=== PATIENT | male | born 2000 | race Caucasian/White ===

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

== ENCOUNTER → 2023-02-19 | Outpatient (CLI) | payer MEDICAID ==
--- NOTE | 2023-02-19 17:02 | CA ---
Transthoracic Echo Report Name: Jaspreet Rosales Age: 22 Gender: M : 2000 Exam Date: 02/19/2023 13:01 Exam Location: [facility] Ht (in): 70 Wt (lb): 180 Ordering Physician: Nitesh Giraldo MD ([id number]) Attending/Referring Phys: Wax Pattern Assembler Karina Ellis RDCS Procedure CPT: Indications: DOPPLER Cardiac Hx: Technical Quality: Excellent Contrast 1: Total Dose (mL): Contrast 2: Total Dose (mL): MEASUREMENTS (Male / Female) Normal Values 2D ECHO LV Diastolic Diameter PLAX 4.8 cm 4.2 - 5.9 / 3.9 - 5.3 cm LV Systolic Diameter PLAX 3.4 cm IVS Diastolic Thickness 1.0 cm 0.6 - 1.0 / 0.6 - 0.9 cm LVPW Diastolic Thickness 0.9 cm 0.6 - 1.0 / 0.6 - 0.9 cm LV Relative Wall Thickness 0.4 RV Internal Dim ED PLAX 3.1 cm LA Systolic Diameter LX 2.9 cm 3.0 - 4.0 / 2.7 - 3.8 cm LV Diastolic Volume MOD 4C 89.5 cm??? LV Systolic Volume MOD 4C 35.6 cm??? LV Ejection Fraction MOD 4C 60.2 % LV Diastolic Length 4C 9.5 cm LV Systolic Length 4C 7.3 cm LV Diastolic Volume MOD 2C 156.7 cm??? LV Systolic Volume MOD 2C 61.7 cm??? LV Ejection Fraction MOD 2C 60.6 % LV Diastolic Length 2C 9.3 cm LV Systolic Length 2C 7.2 cm LA Volume 37.5 cm??? 18 - 58 / 22 - 52 cm??? M-MODE Aortic Root Diameter MM 3.3 cm MV E Point Septal Separation 0.5 cm AV Cusp Separation MM 2.5 cm DOPPLER AV Peak Velocity 150.0 cm/s AV Peak Gradient 9.0 mmHg MV Area PHT 5.2 cm??? Mitral E Point Velocity 102.0 cm/s Mitral A Point Velocity 52.4 cm/s Mitral E to A Ratio 1.9 MV Deceleration Time 146.2 ms MV E' Velocity 12.5 cm/s Mitral E to MV E' Ratio 8.1 TR Peak Velocity 241.1 cm/s TR Peak Gradient 23.3 mmHg Right Ventricular Systolic Press 27.7 mmHg FINDINGS Left Ventricle Left ventricular ejection fraction is estimated at 60-65 %. Left ventricular cavity size normal. Left ventricular wall thickness normal. Right Ventricle Normal right ventricular size and function. Right ventricular systolic pressure within normal limits. Right ventricular systolic pressure estimated at 28 mm hg. Right Atrium Normal right atrial size. Left Atrium Normal left atrial size. Mitral Valve Structurally normal mitral valve. No mitral stenosis, regurgitation or prolapse. Aortic Valve Trileaflet aortic valve. No aortic valve stenosis or regurgitation. Tricuspid Valve Structurally normal tricuspid valve. Mild tricuspid regurgitation. Pulmonic Valve Structurally normal pulmonic valve. Trace pulmonic regurgitation. Pericardium Normal pericardium. No pericardial effusion. Aorta Normal size aortic root and proximal ascending aorta. CONCLUSIONS Normal LV systolic function Previewed by: Dr. Basim Quintana MD (Electronically Signed) Final Date: 19 February 2023 17:01
== END | disposition home or self-care (01) ==
LOC: RADECHMAIN 12:43
PROVIDERS: ATTEND Internal Medicine Clinical Cardiac Electrophysiology
DX: R00.2 Palpitations (principal); I51.7 Cardiomegaly; R94.31 Abnormal electrocardiogram [ECG] [EKG]
CPT/HCPCS: 93270; 93306

== ENCOUNTER → 2023-06-26 | Outpatient (CLI) | payer MEDICAID ==
--- NOTE | 2023-06-26 11:13 | CA ---
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 ICD-10 Codes: Patient History: Medications: Meds past 24 hrs: Pretest Chest Pain: STRESS TEST Tristan Protocol Exercise Duration (min:sec): 14:[address] Depressions (mm): Angina Score: Wasserman Score: Resting HR (bpm): 75 Peak HR (bpm): 194 Resting BP (mmHg): 136 / 79 Peak BP (mmHg): 167 / 46 MPHR: 200 Target HR: 170 % MPHR: 97 METS: 14.9 Total Dose: Peak Dose: Atropine: Double Product: 16998 BP Response: Stress Termination: Reached target heart rate Stress Symptoms: No chest pain or symptoms Stress Summary: ECG ANALYSIS Resting ECG: Stress ECG: CONCLUSIONS Exercise stress test to evaluate the functional properties of the left-sided accessory pathway Baseline heart is 65 beats a minute, Baseline blood pressure 136/79 mmHg Baseline per EKG shows sinus rhythm with a wide QRS. Preexcitation , a short AL interval and secondary T-wave inversions Patient exercised on a Tristan protocol for 14 minutes, achieving a peak heart rate 194 beats a minute. Peak blood pressure 167/[address] segment abnormalities noted No symptoms No arrhythmias The AL remained short and the QRS demonstrated delta waves throughout the stress test Impression Persistence of preexcitation during exercise stress test of 14 minutes on a Tristan protocol with heart rates up to 194 beats a minute consistent with a rapid conduction properties of this antegradely conducting accessory pathway Suggest Consider diagnostic EP study and radiofrequency ablation of the accessory Dr. Jose Pérez MD (Electronically Signed) Final Date: 26 June 2023 11:12
== END | disposition home or self-care (01) ==
LOC: RADNMMAIN 08:24
PROVIDERS: ATTEND Internal Medicine Clinical Cardiac Electrophysiology
DX: I45.6 Pre-excitation syndrome (principal)
CPT/HCPCS: 93017

== ENCOUNTER 2023-08-05 06:02 | Day surgery (SDC) | payer MEDICAID ==
[2023-08-05] MEDS: SODIUM CHLORIDE 0.9% 1,000 ML IV SCH (06:35)
[2023-08-05] MEDS ORDERED: HYDROmorphone 0.5 MG/0.5 ML SYRINGE IVP PRN (07:00)
[2023-08-05] MEDS ORDERED: MIDAZOLAM 2 MG/2 ML VIAL IV PRN (07:00)
[2023-08-05] MEDS ORDERED: fentaNYL (PF) 50 MCG/ML 2 ML AMP ONE (07:08)
[2023-08-05] MEDS ORDERED: MIDAZOLAM 2 MG/2 ML VIAL ONE (07:08)
[2023-08-05] MEDS ORDERED: PROPOFOL 10 MG/ML 20 ML VIAL IV ONE (07:08)
[2023-08-05] MEDS ORDERED: ISOPROTERENOL 250 MCG/1.25 ML SYR IV ONE (07:08)
[2023-08-05] MEDS ORDERED: LIDOCAINE 1% INJ 10MG/ML (20 ML MDV) ONE ×2 (07:25→07:48)
[2023-08-05] MEDS ORDERED: LIDOCAINE 1% INJ 10MG/ML (20 ML MDV) SQ ONE (07:46)
[2023-08-05] MEDS ORDERED: ADENOSINE 3 MG/ML 4 ML VIAL ONE (08:17)
[2023-08-05] MEDS ORDERED: HEPARIN SODIUM (1,000 UNIT/ML) 1,000 UNIT in SODIUM CHLORIDE 0.9% 1,000 ML IRRIGATION ONE (10:30)
[2023-08-05] MEDS ORDERED: ACETAMINOPHEN TAB 325 MG TAB PO PRN (10:45)
[2023-08-05] MEDS ORDERED: ACETAMINOPHEN IV (For NPO) 1,000 MG in EMPTY BAG 1 BAG IVPB ONE (11:00)
--- NOTE | 2023-08-05 11:34 | P.HPCAR ---
History of Present Illness This is Dr. Giraldo dictating an H/P on this patient The patient was interviewed and examined IMPRESSION / ASSESSMENT: Abnormal EKG Palpitations and dizzy spells during exercise Left bundle branch block morphology with upright delta waves in the inferior leads and positive and one in aVL consistent with a right-sided pathway Persistence of antegrade accessory pathway conduction with exercise PLAN: Diagnoses EP study and likely ablation of the accessory pathway HPI Patient continues to complain of palpitations and dizzy spells with exercise He has an abnormal EKG Antegrade accessory pathway conduction persisted with exercise At this time he denies no loss of consciousness no chest pain no undue shortness of breath No fever chills or cough ROS: No fever chills or rigors, no cough, phlegm or expectoration, no nausea, vomiting or diarrhea, no hematuria, dysuria, no musculoskeletal complaints, no strokes or seizures, no skin lesions. EXAMINATION: Ulcer to the 50s afebrile Blood pressure 129/76. His mercury Heart sounds S1 and S2 are normal Breath sounds are clear REVIEW OF LABS, ECG & MEDICAL DATA Patient is on no cardiac medications Physical Exam Vitals: Vital Signs Temp Pulse Pulse Resp BP BP Pulse Ox 08/05/23 11:00 73 14 134/83 98 08/05/23 06:31 97.7 F 56 L 16 129/76 127/75 98 Intake and Output 08/04/23 08/05/23 08/05/23 22:59 06:59 14:59 Intake Total 836 Balance 836 Intake: IV 836 Other: Weight 88.5 kg Past Medical History Past Medical History: Asthma Additional Past Medical History / Comment(s): See Dr. Giraldo's H&P History of Any Multi-Drug Resistant Organisms: None Reported Additional Past Surgical History / Comment(s): Circumcism Past Anesthesia/Blood Transfusion Reactions: No Reported Reaction Smoking Status: Never smoker - Past Family History Father History Unknown: Yes Additional Family Medical History / Comment(s): Pt is adopted. Mother History Unknown: Yes Additional Family Medical History / Comment(s): Pt is adopted. Physical Examination Vital Signs Temp Pulse Pulse Resp BP BP Pulse Ox 08/05/23 11:00 73 14 134/83 98 08/05/23 06:31 97.7 F 56 L 16 129/76 127/75 98 Intake and Output 08/04/23 08/05/23 08/05/23 22:59 06:59 14:59 Intake Total 836 Balance 836 Intake: IV 836 Other: Weight 88.5 kg Results Current Medications Generic Name Dose Route Start Last Admin Trade Name Freq PRN Reason Stop Dose Admin Acetaminophen 650 mg 08/05/23 10:45 Acetaminophen Tab 325 Mg Tab PO Q6HR PRN Mild Pain (Scale 1 to 3) Hydromorphone HCl 0.5 mg 08/05/23 07:00 Hydromorphone 0.5 Mg/0.5 Ml Syringe IVP 08/05/23 23:00 Q5M PRN Phase 1 or 2 - Pain Control Sodium Chloride 1,000 mls @ 20 mls/hr 08/05/23 06:04 08/05/23 06:35 Saline 0.9% IV 09/04/23 06:05 600 mls .Q24H ROSEY Administration Lactated Ringer's 1,000 mls @ 20 mls/hr 08/05/23 06:04 Lactated Ringers IV 09/04/23 06:05 .Q24H ROSEY Midazolam HCl 2 mg 08/05/23 07:00 Midazolam 2 Mg/2 Ml Vial IV 08/05/23 23:00 ONCE PRN Pre-Op Anxiety Sodium Chloride 12 ml 08/05/23 10:45 Sodium Chloride 0.9% Flush 10 Ml Syringe IV Q12HR PRN Line Flush Intake and Output 08/04/23 08/05/23 08/05/23 22:59 06:59 14:59 Intake Total 836 Balance 836 Intake: IV 836 Other: Weight 88.5 kg
--- NOTE | 2023-08-05 11:41 | P.EPPROC ---
- EP Procedure Note Electrophysiology Procedure Note: Diagnosis Right-sided accessory pathway Persistence of accessory pathway conduction with exercise Recurrent dizzy spells and palpitations Final diagnosis Right-sided antegradely conducting only accessory pathway 1 o'clock position in the NAYAN view Successful mapping and ablation of the accessory pathway with differential pacing AV node conduction remained intact during and following ablation Details Patient was brought to the EP lab in a fasting state. Written informed consent was obtained prior to the procedure. Venous sheaths placed in the right and left femoral veins Diagnostic catheters positioned in the high right atrium His bundle area right ventricle and coronary sinus Sinus cycle length 1000 ms, SD interval 84 ms with a short SD interval and delta waves. QRS 180 ms AH interval 80 ms and HV interval very short VA Wenckebach block 360 ms Do response to Parahisian pacing Sinus node recovery times were normal IV adenosine given during atrial pacing. No change in the degree of delta waves No change in the degree of delta waves with atrial pacing Left bundle branch block morphology with upright delta waves in the inferior leads Patient developed atrial fibrillation with adenosine Electrical cardioversion was performed to sinus rhythm Pacing from the distal CS resulted in narrowing of the QRS at a pacing cycle length of 600 ms Widening of the QRS with no prominent delta waves at faster cycle lengths Following that mapping of the His bundle and right-sided accessory pathway was performed during differential pacing The AV node/His bundle area was accurately tagged Mapping of the accessory pathway was performed with right atrial pacing The earliest site of activation in the ventricle was mapped This site corresponded to mechanical bump termination of the accessory pathway This was also tagged RF ablation was applied 40 W of power was used Successful ablation was performed Thereafter Isuprel was used Atrial pacing was performed from multiple sites We waited for almost greater than 30-45 minutes Isuprel was repeatedly used and there was no reoccurrence of accessory pathway SD interval within normal Off Isuprel SD interval is 180 ms, QRS 71 ms without delta waves On Isuprel AV node Wenckebach block was 210 ms from multiple different sites Patient tolerated the procedure well without acute complications. Venous sheaths were closed with Vascade
[2023-08-05] MEDS: LACTATED RINGERS 1,000 ML IV SCH (11:43)
[2023-08-06] MEDS: LACTATED RINGERS 1,000 ML IV SCH (04:33)
[2023-08-06] MEDS: SODIUM CHLORIDE 0.9% 1,000 ML IV SCH (04:34)
[2023-08-06 07:55] VITALS: BP 122/64; PULSE 59; RESP 17; TEMP 97.9
--- NOTE | 2023-08-06 12:35 | P.DS ---
Providers Attending physician: Nitesh Giraldo Primary care physician: Claudio Rosales [facility] Course: Patient is doing well. Groins of healed well Minimal tenderness no swelling On examination heart sounds are normal breath sounds are clear Pulse rate in the 50s Blood pressure 128/72 mmHg Impression Right-sided accessory pathway at 1 o'clock position of the iliotibial tricuspid valve Status post successful ablation His follow-up will EKG today shows sinus mechanism with early repolarization abnormality Suggest Discharge home today After about 6-8 weeks we will perform an exercise treadmill stress test as a follow-up for evaluation of accessory pathway conduction post ablation As well as for assessment of AV node function The ablation site was about 1.1-1.5 cm away from the AV node/His bundle area and there was no acute injury noted Event monitor after 3 months Patient Condition at Discharge: Good Plan - Discharge Summary Discharge Rx Participant: No New Discharge Prescriptions: No Action Montelukast [Singulair] 10 mg PO DAILY PRN PRN Reason: Congestion Levocetirizine Dihydrochloride [Xyzal] 5 mg PO DAILY PRN PRN Reason: Congestion Discharge Medication List Levocetirizine Dihydrochloride [Xyzal] 5 mg PO DAILY PRN 07/31/23 [History] Montelukast [Singulair] 10 mg PO DAILY PRN 07/31/23 [History] Follow up Appointment(s)/Referral(s): Nitesh Giraldo MD [STAFF PHYSICIAN] - 08/16/23 3:15 pm (Appointment made at the [address] office ) Patient Instructions/Handouts: Cardiac Ablation (DC) Activity/Diet/Wound Care/Special Instructions: Post EP study - Ablation instructions 1. Keep access sites dry for 2 days. 2. No heavy lifting or straining for 2 days. 3. Avoid bending the hips repeatedly for 2 days. 4. You may go up and down stairs slowly Call if the following is noted 1. Bleeding, increasing swelling or pain at the access sites. 2. Increasing chest discomfort, especially upon taking a deep breath. 3. Increasing shortness of breath, at rest or with exertion. 4. Undue cough / phlegm 5. Difficulty or pain while swallowing. 6. Pain or change in color in the extremities. 7. Fever, chills, rigors. 8. Increasing headache or neurologic symptoms. 9. Dizziness, fainting, palpitations Discharge Disposition: HOME SELF-CARE
== END 2023-08-06 09:43 | disposition home or self-care (01) ==
LOC: CATHEP 06:02 → 6NMEDSUR 10:22 → CATHEP 08-06 09:43
PROVIDERS: ATTEND Internal Medicine Clinical Cardiac Electrophysiology
DX: I44.7 Left bundle-branch block, unspecified (principal); I45.6 Pre-excitation syndrome; J45.909 Unspecified asthma, uncomplicated
CPT/HCPCS: 93623; 93653; 86900; 86901; 86850; C1894; C1769; C1760; C1730 ×3; C1893; C1732; J2250; J2001; J3010; J1644; J0131; J2704

== ENCOUNTER 2025-05-16 02:02 | Emergency (ER) | payer OTHER ==
--- NOTE | 2025-05-16 02:34 | ED ---
ENT HPI - General Chief complaint: Dental/Oral Stated complaint: Dental pain Time Seen by Provider: 05/16/25 02:21 Source: patient, RN notes reviewed, old records reviewed Mode of arrival: ambulatory Limitations: no limitations - History of Present Illness Initial comments: This is a 24-year-old male who wakes up with severe tooth pain that awoke him fr om sleep tonight. Patient's pain is severe right rear lower molar type pain. Took Motrin and Tylenol which is helping the pain currently. No significant medical history no trauma no other complaints MD complaint: tooth pain -: hour(s) Location: tooth # Severity: severe Severity scale (1-10): 9 Consistency: constant, other (improving) Improves with: none Worsens with: eating Context- Dental: history of dental caries Associated Symptoms: toothache - Related Data Home Medications Medication Instructions Recorded Confirmed Levocetirizine Dihydrochloride 5 mg PO DAILY PRN 07/31/23 08/05/23 [Xyzal] Montelukast [Singulair] 10 mg PO DAILY PRN 07/31/23 08/05/23 Allergies Allergy/AdvReac Type Severity Reaction Status Date / Time No Known Allergies Allergy Verified 05/16/25 02:14 Review of Systems ROS Statement: Those systems with pertinent positive or pertinent negative responses have been documented in the HPI. ROS Other: All systems not noted in ROS Statement are negative. Past Medical History Past Medical History: Asthma Additional Past Medical History / Comment(s): See Dr. Giraldo's H&P History of Any Multi-Drug Resistant Organisms: None Reported Additional Past Surgical History / Comment(s): Circumcism Past Anesthesia/Blood Transfusion Reactions: No Reported Reaction Past Psychological History: No Psychological Hx Reported Smoking Status: Never smoker Past Alcohol Use History: None Reported Past Drug Use History: None Reported - Past Family History Father History Unknown: Yes Additional Family Medical History / Comment(s): Pt is adopted. Mother History Unknown: Yes Additional Family Medical History / Comment(s): Pt is adopted. General Exam Limitations: no limitations General appearance: alert, in no apparent distress Head exam: Present: atraumatic, normocephalic, normal inspection Eye exam: Present: normal appearance, PERRL, EOMI. Absent: scleral icterus, conjunctival injection, periorbital swelling ENT exam: Present: normal exam, mucous membranes moist Neck exam: Present: normal inspection. Absent: tenderness, meningismus, lymphadenopathy Respiratory exam: Present: normal lung sounds bilaterally. Absent: respiratory distress, wheezes, rales, rhonchi, stridor Cardiovascular Exam: Present: regular rate, normal rhythm, normal heart sounds. Absent: systolic murmur, diastolic murmur, rubs, gallop, clicks GI/Abdominal exam: Present: soft, normal bowel sounds. Absent: distended, tenderness, guarding, rebound, rigid Extremities exam: Present: normal inspection, full ROM, normal capillary refill. Absent: tenderness, pedal edema, joint swelling, calf tenderness Back exam: Present: normal inspection Neurological exam: Present: alert, oriented X3, CN II-XII intact Psychiatric exam: Present: normal affect, normal mood Skin exam: Present: warm, dry, intact, normal color. Absent: rash Course Vital Signs 05/16/25 02:14 Temperature 97.4 F L Pulse Rate 61 Respiratory 16 Rate Blood Pressure 131/78 O2 Sat by Pulse 100 Oximetry - Reevaluation(s) Reevaluation #1: 05/16/25 02:33 Medical records reviewed Reevaluation #2: 05/16/25 02:33 Patient symptoms improved Reevaluation #3: 05/16/25 02:33 Patient informed of results questions answered Reevaluation #4: Was pt. sent in by a medical professional or institution (, PA, DRIVER TRAINEE, urgent care, hospital, or care home...) When possible be specific @ -no Did you speak to anyone other than the patient for history (EMS, parent, family, police, friend...)? What history was obtained from this source @ -no Did you review nursing and triage notes (agree or disagree)? Why? @ -agree Are old charts reviewed (outside hosp., previous admission, EMS record, old EKG, old radiological studies, urgent care reports/EKG's, care home records)? Report findings @ -yes Differential Diagnosis (chest pain, altered mental status, abdominal pain women, abdominal pain men, vaginal bleeding, weakness, fever, dyspnea, syncope, headache, dizziness, GI bleed, back pain, seizure, CVA, palpatations, mental health, musculoskeletal)? @ -prior EKG interpreted by me (3pts min.). @ -yes X-rays interpreted by me (1pt min.). @ -yes negative for acute disease CT interpreted by me (1pt min.). @ -no U/S interpreted by me (1pt. min.). @ -no What testing was considered but not performed or refused? (CT, X-rays, U/S, labs)? Why? @ -none What meds were considered but not given or refused? Why? @ -none Did you discuss the management of the patient with other professionals (prof guzmán i.e. , PA, DRIVER TRAINEE, lab, RT, psych nurse, medical social consultant, telecom assistant, teacher, administrative services officer, geriatric case manager)? Give summary @ -no Was smoking cessation discussed for >3mins.? @ -no Was critical care preformed (if so, how long)? @ -no Were there social determinants of health that impacted care today? How? (Homelessness, low income, unemployed, alcoholism, drug addiction, transportation, low edu. Level, literacy, decrease access to med. care, fci, rehab)? @ -none Was there de-escalation of care discussed even if they declined (Discuss DNR or withdrawal of care, Hospice)? DNR status @ -no What co-morbidities impacted this encounter? (DM, HTN, Smoking, COPD, CAD, Cancer, CVA, ARF, Chemo, Hep., AIDS, mental health diagnosis, sleep apnea, morbid obesity)? @ -none Was patient admitted / discharged? Hospital course, mention meds given and route, prescriptions, significant lab abnormalities, going to OR and other pertinent info. @ - Undiagnosed new problem with uncertain prognosis? @ -no Drug Therapy requiring intensive monitoring for toxicity (Heparin, Nitro, Insulin, Cardizem)? @ -no Were any procedures done? @ -no Diagnosis/symptom? @ - Acute, or Chronic, or Acute on Chronic? @ -Acute Uncomplicated (without systemic symptoms) or Complicated (systemic symptoms)? @ -Complicated Side effects of treatment? @ -no Exacerbation, Progression, or Severe Exacerbation? @ -exacerbation Poses a threat to life or bodily function? How? (Chest pain, [place], [place], pneumonia, PE, COPD, DKA, ARF, appy, cholecystitis, CVA, Diverticulitis, Homicidal, Suicidal, threat to staff... and all critical care pts) @ -yes Medical Decision Making - Medical Decision Making 24-year-old male with right rear molar dental abscess, patient's pain is adequately controlled currently given antibiotics and can be discharged home Disposition Clinical Impression: Dental abscess, Toothache Condition: Good Instructions (If sedation given, give patient instructions): Dental Abscess (ED), Toothache (ED) Is patient prescribed a controlled substance at d/c from ED?: No Referrals: Claudio Rosales MD [Primary Care Provider] - 1-2 days Time of Disposition: 02:50
[2025-05-16 02:57] VITALS: BP 131/78; PULSE 61; RESP 16; TEMP 97.4
[2025-05-16] MEDS: AMOXIC-POT CLAV 875-125MG 1 EACH TAB PO STA (03:03)
[2025-05-16] MEDS: KETOROLAC 15 MG/ML 1 ML VIAL IM STA (03:04)
== END 2025-05-16 03:12 ==
LOC: EC 02:02
DX: K04.7 Periapical abscess without sinus (principal)
CPT/HCPCS: 99284; 96372; J1885